=== PATIENT | female | born 1985 | race Caucasian/White ===

== ENCOUNTER 2020-11-07 15:48 | Emergency (ER) | payer MEDICAID, SELFPAY ==
[2020-11-07 15:55] VITALS: BP 133/86; PULSE 110; RESP 20; TEMP 36.2; O2SAT 98
[2020-11-07 16:22] VITALS: RESP 20; BMI 24.4
--- NOTE | 2020-11-07 16:51 | PC.NURSE ---
Pt cooperative w/ changeover, affect guarded, pt denies any recent loss of behavioral control. Pt denies SI, HI or AH/VH.
--- NOTE | 2020-11-07 16:54 | ED.PSYCH ---
HPI - Psych General Chief Complaint: Psychiatric Symptoms Stated Complaint: crisis/ Time Seen by Provider: 11/07/20 16:33 Source: patient and EMS Mode of arrival: ambulatory Limitations: no limitations History of Present Illness HPI Narrative: 35-year-old female with a past medical history of depression here with behavior change. Per report from EMS the patient was at [employer] when she got into a verbal altercation with her field case manager and she became quite aggressive. There was concern for her mental well being and EMS was called and she was brought here . Per report from EMS there have been concerns from several other [employer] the patient has had thoughts of conspiracy and has seen quite paranoid at times. Patient denies these things. She denies hallucinations. Denies suicidal or homicidal ideations. No physical complaints. Denies substance use. No family present to give additional history Related Data Allergies Allergy/AdvReac Type Severity Reaction Status Date / Time No Known Allergies Allergy Verified 11/07/20 16:42 Review of Systems Review of Systems: Yes all other systems are reviewed and are negative Constitutional: Constitutional: Reports no additional constitutional complaints, Denies body ache(s), Denies chills, Denies fever(s), Denies headache(s) and Denies weakness Eyes: Eyes: Reports no additional eye complaints and Denies change in vision ENT: Reports system reviewed and no additional complaints, except as documented, Denies dizziness, Denies headache(s), Denies nasal congestion, Denies nasal discharge and Denies neck pain Cardiovascular: Cardiovascular: Reports no additional cardiovascular complaints, Denies chest pain, Denies leg edema and Denies dyspnea Respiratory: Respiratory: Reports no additional respiratory complaints, Denies cough and Denies dyspnea Gastrointestinal: Gastrointestinal: Reports no additional gastrointestinal complaints, Denies abdominal pain, Denies diarrhea, Denies nausea and Denies vomiting Genitourinary: Genitourinary: Reports no additional female genitourinary complaints and Denies urinary incontinence Musculoskeletal: Musculoskeletal: Reports no additional musculoskeletal complaints, Denies back pain, Denies arthralgias, Denies joint swelling, Denies neck pain, Denies numbness and Denies tingling Integumentary/Breasts: Skin/Breast: Reports system reviewed and no additional complaints, except as docu and Denies rash Neurologic: Reports system reviewed and no additional complaints, except as documented, Denies Abnormal speech present, Denies dizziness, Denies headache(s), Denies numbness, Denies tingling and Denies weakness Psychiatric: Psychiatric: Denies anxiety, Denies depression, Denies visual hallucinations, Denies hallucinations, Denies homicidal ideation and Denies suicidal ideation [facility] Past Medical History Attestation statement: The following information was validated with the patient. Source: old records reviewed and nursing notes reviewed Medical History No known health problems Social History Social History Advance Directives: No Advance Directives Information Provided: Yes Patient : No Physical Exam Vital Signs: Vital Signs: Last Vital Signs Temp 97.2 F 11/07/20 15:55 Pulse 110 H 11/07/20 15:55 Resp 20 11/07/20 18:00 BP 133/86 11/07/20 15:55 Pulse Ox 98 11/07/20 15:55 Body Mass Index 24.4 Const: General: cooperative, healthy appearing, comfortable and no acute distress Orientation/consciousness: patient oriented x3 Limitations: no limitations HENMT: Head: Yes normal to inspection Ears: hearing grossly normal bilaterally General nose exam: Normal external nose present Face and sinus: Yes normal facial exam Mouth: Normal oral and palatal mucosa present Throat: Yes posterior oropharynx normal Eyes: General: appearance normal, both eyes and all related structures Pupils: Equal, round and reactive pupils present Neck: Neck: Yes normal visual inspection Chest: Chest palpation & inspection: normal inspection of the chest Resp: Effort & Inspection: normal respiratory effort Auscultation: clear to auscultation bilaterally Cardio: Rate: regular rate Rhythm: regular rhythm Peripheral pulses: Peripheral pulses 2+ throughout GI: Inspection: Yes normal to inspection Palpation (GI): Soft to palpation and nontender Auscultation: normal bowel sounds Back/Spine/Pelvis: Thoracic/Lumbar Spine: thoracic and lumbar spine normal to inspection Skin: General skin exam: no rashes or lesions noted Neuro: General: patient oriented x3, no focal motor deficits and normal sensation to monofilament Cranial nerves: Yes Equal, round and reactive pupils present Cognition (Neuro): normal cognition Speech: No Abnormal speech present Gait exam (Neuro): Normal gait present Motor exam (neuro): 5/5 motor strength present throughout Extrem: General: Yes normal to inspection Psych: Appearance: grossly normal Mental Status: mental status grossly normal Speech and movement: Normal speech and movement present Affect: normal affect Attitude: cooperative Course Course Course Narrative: 35-year-old female here after reports of having an aggressive outburst while at [employer] and seeming quite paranoid with thoughts of conspiracy per EMS. Patient denies suicidal or homicidal ideations. No hallucinations. No physical complaints. She provides very limited history and responds very briefly to my questions. Family is not available for additional report. Will involve care team for further evaluation, check drug screen 1939-care team saw the patient and spoke to family. They are at the bedside. There are no immediate safety concerns and the patient is denying hallucinations, suicidal or homicidal ideations. Plan for discharge home with Mom. Reviewed worrisome signs and symptoms of when to return to the emergency department. Comfortable discharge home. [facility] - Psych Medical Records Attestation: I reviewed the patient's medical records. Lab Data Attestation: I reviewed the patient's lab results. Labs: Lab Results 11/07/20 11/07/20 11/07/20 Range/Units 16:43 16:43 18:21 Urine Test NEGATIVE (NEGATIVE) Urine Opiates Screen Not Detected (Not Detect) Ur Barbiturates Screen Not Detected (Not Detect) Ur Phencyclidine Scrn Not Detected (Not Detect) Ur Amphetamines Screen Not Detected (Not Detect) U Benzodiazepines Scrn Not Detected (Not Detect) Urine Cocaine Screen Not Detected (Not Detect) U Marijuana (THC) Screen Not Detected (Not Detect) COVID-19 (JARETH) Negative (Negative) COVID-19 Clin Com See Note Discharge Plan Discharge Clinical Impression: Adjustment disorder Qualifiers: Adjustment disorder type: unspecified type Qualified Code(s): F43.20 - Adjustment disorder, unspecified Patient Disposition: Home, Self-Care Instructions: Stress (ED) Referrals: Physician,Unknown [Primary Care Provider] - 2 days Interventions: ED Discharge Assessment Last Done: 11/07/20 19:44 Discharge Date/Time: 11/07/20 19:52
[2020-11-07 17:00] LABS: UPreg QC Valid YES; Urine Pregnancy NEGATIVE (NEGATIVE)
[2020-11-07 17:19] LABS: Amphetamine Screen Urine Not Detected (Not Detect); Barbiturates, Urine Not Detected (Not Detect); Benzodiazepines Screen Urine Not Detected (Not Detect); Cannabinoid Screen Urine Not Detected (Not Detect); Cocaine Screen Urine Not Detected (Not Detect); Opiate Screen Urine Not Detected (Not Detect); Phencyclidine Screen Urine Not Detected (Not Detect)
[2020-11-07 18:00] VITALS: RESP 20
--- NOTE | 2020-11-07 18:07 | PC.NURSE ---
Mother in w/ pt- mother denies that pt lost control in [employer], is unclear why her daughter was sent to the ED. pt in room,eating dinner. Affect guarded, speech halting ? thought blocking.
[2020-11-07 18:49] LABS: COVID-19 Test Negative (Negative); IDNOW Serial# 9DD0AD1C
--- NOTE | 2020-11-07 20:05 | MHC.CARE ---
CARE team consult requested for 35 year old, bilingual, female who arrived by EMS from [employer] for reported loss of behavioral control marked by paranoia, unspecified aggression, and question of altered mental status. Pt was guarded with odd affect and thought blocking. Pt laughed before answering most questions and often asked this insurance underwriter to repeat questions when asked. Pt denied experiencing any thoughts and/or urges to harm self or others, denied experiencing hallucinations, and denied any recent changes in her mood or daily functioning. Pt's mother was present for the consultation and denied that the pt was aggressive, paranoid, or disoriented. Pt's mother denied having any safety concerns with regards to the pt, though indicated that she wants the pt to see her counselor again and resume taking medications, concerned that pt hasn't been sleeping well lately and has been anxious. Pt denied both of these things. Pt reported that she previously worked with a therapist however stopped several month ago, and was on medication but would not say what or what for. Last year pt was admitted to [facility], which pt nor her mother could explain whether the admission was medical or psychiatric, only that pt began taking medications while she was there and working with her therapist shortly after. Pt's mother reported that the pt was anxious and overwhelmed by the covid-19 pandemic, having lost her job and being isolated at home, and feels that is why pt was in the hospital. Pt shared that she had gone to [employer] with her mother today for a sermon, and she spoke with the jar capper 1 to 1 in the [employer] basement, stating that she wanted to thank him for all his love and support. Pt reported that a woman affiliated with the [employer] began to ask the pt questions such as what the date is, where she is, etc. Instead of answering, pt reported that she laughed in responses and was interpreted as pt not being oriented. Pt and her mother denied there being any instances of aggression and were surprised to hear pt's behavior described as such. Pt and her mother were advocating for discharge home. This insurance underwriter contacted [facility] and spoke with crisis bailer operators supervisor Anh who shared information from a crisis evaluation that took place at [facility] on Feb 27, 2020-- pt was evaluated on the medical floor where she had been admitted for question of seizures and other potential medical causes for onset of symptoms of psychosis marked by paranoia and unusual, disorganized behavior, keeping knives by her door and hiding in her room. This resulted in a brief psychiatric admission, with no other documented treatment history reported by pt/mother or through [facility] or via hospital medical record. ED provider was consulted re: pt's current presentation, what she and her mother have reported, and history obtained from the crisis team. Discussed plan of care for pt to discharge home with her mother and to follow up with [facility] crisis for a mobile crisis evaluation, as pt's mother is advocating to take pt home and denied having any concerns for pt's safety or the safety of others. Contact information for [facility] crisis was given to each the pt and her mother, and were encouraged to call and speak with someone more about what had happened at the [employer] today, and to use as a resources if/when future concerns or situations arise.
== END 2020-11-07 19:52 | disposition home or self-care (01) ==
PROVIDERS: Nurse Practitioner Family; Emergency Provider Emergency Medicine
DX: F43.20 Adjustment disorder, unspecified (principal); Z20.822 Contact with and (suspected) exposure to COVID-19; F32.9 Major depressive disorder, single episode, unspecified
CPT/HCPCS: 36415; 80307; 81025; 87635; 99284

== ENCOUNTER 2023-01-09 11:20 | Emergency (ER) | payer OTHER, SELFPAY ==
--- NOTE | ~2023-01-09 | CT_ITS ---
EXAMINATION: CT HEAD WITHOUT CONTRAST CLINICAL INFORMATION: Head trauma. COMPARISON: CT sinuses from 12/24/2019. TECHNIQUE: Contiguous axial imaging was performed from the skull base to vertex without intravenous administration of contrast. This CT examination was performed using dose optimization techniques as appropriate, variously including the following: *Automated exposure control. *Adjustment of mA and/or kV according to patient size (this includes techniques or standardized protocols for targeted exams where dose is matched to indication/reason for exam; i.e. extremities or head). *Use of iterative reconstruction technique. DLP: 621 mGy-cm FINDINGS: There is no evidence of acute intracranial hemorrhage or edematous territorial infarction. Goff-white matter differentiation is preserved. There is no abnormal attenuation within the brain parenchyma. The ventricles are normal in morphology and size. No evidence for obstructive hydrocephalus. No abnormal mass effect or midline shift. No extra-axial fluid collections. Laceration of the right frontal scalp. No associated osseous abnormalities. Mild mucosal thickening of the paranasal sinuses. The mastoid air cells and middle ear cavities are clear. CT/CT head/brain wo IV con IMPRESSION: 1. No evidence of acute intracranial hemorrhage or edematous territorial infarction. 2. Laceration of the right frontal scalp. No associated osseous abnormalities.
[2023-01-09 11:36] VITALS: BP 136/84; BP 141/69; PULSE 112; PULSE 118; RESP 16; O2SAT 99; BMI 22.4
--- NOTE | 2023-01-09 13:04 | ED_ITS ---
HPI - Skin/Abscess/Foreign Bdy General Chief complaint: Skin/Abscess/Foreign Body Stated complaint: forehead lac unk how it hap, from [facility] [address] Time Seen by Provider: 01/09/23 11:49 Source: patient and RN notes reviewed Mode of arrival: ambulatory Limitations: no limitations History of Present Illness HPI narrative: This is a 37-year-old female, with a past medical history of depression, presenting to the emergency department from [facility] on [address] [facility], accompanied by her father for forehead laceration. Patient is a poor historian and is unable to report how long she has had this laceration for or how it happened. Father does not have much knowledge regarding patient, situation, or medical history. Father reports that there is no report on how patient received this laceration on her forehead. Mother reports that she has tried contacting the facility but no staff members have given parents a report on how this occurred. No other complaints or concerns at this time. MD complaint: laceration Tetanus up to date: unsure Location: head Related Data Allergies Allergy/AdvReac Type Severity Reaction Status Date / Time No Known Allergies Allergy Verified 11/09/20 16:49 Review of Systems Review of Systems: Patient is a poor historian, unable to obtain ROS Yes all other systems are reviewed and are negative Constitutional: Constitutional: Reports as per [facility] Past Medical History Medical History (Updated 01/10/23 @ 00:31 by Levar Gamez) No known health problems Social History Social History (System 11/09/20 @ 16:49 by Laure Fernandez) Smoked in Last 30 Days: No Use of substances other than those prescribed or required for medical reasons: No Advance Directives: No Advance Directives Information Provided: Yes Patient : No Physical Exam Vital Signs: Vital Signs: Last Vital Signs Pulse 112 H 01/09/23 14:43 Resp 20 01/09/23 14:43 BP 124/69 01/09/23 14:43 Pulse Ox 98 01/09/23 14:43 O2 Del Method Room Air 01/09/23 14:43 BMI result Body Mass Index 22.4 Const: Other: Patient appears guarded, limited eye contact, whispering words to oneself. Consistently attempting to touch wound, stating that is is ok. Unable to be redirected. General: cooperative, comfortable and no acute distress Limitations: behavioral limitations HEENT: Head: Yes normal to inspection, Yes normocephalic and Yes atraumatic Ears: hearing grossly normal bilaterally General nose exam: Normal external nose present Face and sinus: Yes normal facial exam Mouth: Normal oral and palatal mucosa present, oropharynx normal and moist mucous membranes Throat: Yes posterior oropharynx normal Eyes: General: appearance normal, both eyes and all related structures Eyelids: Yes eyelids normal Conjunctivae: conjunctivae normal Sclerae: sclerae normal Pupils: Equal, round and reactive pupils present EOM: EOMs intact bilaterally Neck: Neck: Yes normal visual inspection, Yes full ROM and Yes no lymphadenopathy Lymphatic: no lymphadenopathy noted Chest: Chest palpation & inspection: normal inspection of the chest Resp: Effort & Inspection: normal respiratory effort and able to speak in complete sentences Auscultation: clear to auscultation bilaterally, no crackles, no rales, no rhonchi and no wheezes Cardio: Rate: regular rate Rhythm: regular rhythm Heart sounds: S1 normal heart sound present and S2 normal heart sound present GI: Inspection: Yes normal to inspection Skin: Other: partial thickness laceration measuring approximately 3 cm to the mid forehead, no active bleeding or drainage. No facial muscle involvement noted. Mild surrounding edema noted General skin exam: no rashes or lesions noted Trauma: no lacerations or abrasions Wounds: no wounds Neuro: General: moves all extremities Cranial nerves: Yes Equal, round and reactive pupils present Extrem: General: Yes normal to inspection Right upper extremity: normal to inspection Left upper extremity: normal to inspection Right lower extremity: normal to inspection Left lower extremity: normal to inspection Course Reevaluation(s) Reevaluation #1: CT head pending, attempted wound closure with sutures however patient unable to tolerate even simple cleaning with saline. She is unable to tolerate given agitation, fearful, given her developmental delay. Extensive discussion with mother given risk versus benefit of conscious sedation for wound closure. A long discussion was performed with mother given risk of infection, scarring when using Dermabond vs suturing. I discussed case with my attending Dr. Jeffries, states that given wound will have good wound approximation, this wound can be closed using dermabond. We discussed this with parents and they are in agreement that dermamond will be the best course of action in repairing this wound today. Will medicate patient with Haldol and Ativan to reduce anxiety during procedure. Time: 15:50 Reevaluation #2: Procedure performed with Dr. Jeffries at the bedside. Good wound approximation achieved. patient tolerated procedure well without any complications or concerns. Tetanus is up-to-date, per external records. Updated in August 2022. Time: 17:18 Reevaluation #3: CT head negative. discussed with parents, patient stable for discharge. Given parents good wound care instructions. Advised to follow up with [facility] regarding laceration as it is still unclear how this happened. Parents understand and agree with plan. Given return precautions if any new or worsening symptoms occur. Time: 17:40 Medications Administered Discontinued Medications Generic Name Dose Route Start Last Admin Trade Name Freq PRN Reason Stop Dose Admin Diphtheria/Tetanus/Acell Pertussis 0.5 ml 01/09/23 17:15 01/09/23 17:22 Diphth,Pertus(Acell),Tet Adult 0.5 Ml Syringe IM 01/09/23 17:16 Not Given .ONCE ONE Haloperidol 5 mg 01/09/23 15:49 01/09/23 16:11 Haloperidol 5 Mg Tablet PO 01/09/23 15:50 5 mg ONCE ONE Administration Lidocaine HCl 5 ml 01/09/23 13:14 01/09/23 13:39 Lidocaine Hcl 1 % Mpf 5 Ml Vial INFILTRATI 01/09/23 13:15 5 ml ONCE ONE Administration Lorazepam 1 mg 01/09/23 15:49 01/09/23 16:11 Lorazepam 1 Mg Tablet PO 01/09/23 15:50 1 mg ONCE ONE Administration Medical Decision Making Medical Decision Making MDM Narrative: 37-year-old female presenting to the emergency department for evaluation of laceration to her forehead. Patient coming from [facility] on [address], Patient is a poor historian. Laceration requiring suture repair. Unknown tetanus. Given poor historian and unclear what had happened, CT head obtained to r/o any ICH. VSS. Plan: Wound repair, CT head Differential Diagnosis Differential Diagnoses: The differential diagnosis associated with the presentation includes Laceration, contusion, abrasion, cellulitis Admission/Observation Consideration of admission/observation: Escalation of care including admission/observation considered Patient would have been admitted to the hospital had her work up had any findings where hospital admission was appropriate and her clinical presentation warranted hospital admission. Radiology Impression Discussion of test interpretation with radiology: I have reviewed the radiologist's reading. Radiologist Impression: [address] [address] [address] Scan Report Signed Patient: Onofre Wayne MR#: [id number] : 1985 Acct:[id number] Age/Sex: 37 / F ADM Date: 01/09/23 Loc: HO.ED Attending Dr: Ordering Physician: Mary Puga Date of Service: 01/09/23 Procedure(s): CT head/brain wo IV con Accession Number(s): [id number] cc: Mary Puga~ EXAMINATION: CT HEAD WITHOUT CONTRAST CLINICAL INFORMATION: Head trauma.? COMPARISON: CT sinuses from 12/24/2019. TECHNIQUE: Contiguous axial imaging was performed from the skull base to vertex without intravenous administration of contrast. This CT examination was performed using dose optimization techniques as appropriate, variously including the following: *Automated exposure control. *Adjustment of mA and/or kV according to patient size (this includes techniques or standardized protocols for targeted exams where dose is matched to indication/reason for exam; i.e. extremities or head). *Use of iterative reconstruction technique. DLP: 621 mGy-cm FINDINGS: There is no evidence of acute intracranial hemorrhage or edematous territorial infarction. Goff-white matter differentiation is preserved. There is no abnormal attenuation within the brain parenchyma. The ventricles are normal in morphology and size. No evidence for obstructive hydrocephalus. No abnormal mass effect or midline shift. No extra-axial fluid collections. Laceration of the right frontal scalp. No associated osseous abnormalities. Mild mucosal thickening of the paranasal sinuses. The mastoid air cells and middle ear cavities are clear. ? CT/CT head/brain wo IV con IMPRESSION: 1.? No evidence of acute intracranial hemorrhage or edematous territorial infarction. 2.? Laceration of the right frontal scalp. No associated osseous abnormalities. ? Dictated By: Renard Jarquin DO Procedures Procedure Narrative Procedure Narrative: Local LMX cream applied for topical anethesia. Wound extensively cleansed using saline. Wound cleansed using Dermabond. Wound well approximated. Patient tolerated procedure well without any complications or concerns. Laceration Laceration 1: Site: face Size (cm): 3 Description: linear Depth: simple, single layer Local Anesthetic: other anesthetic (LMX cream) Pre-repair: wound explored, irrigated extensively and deep structures intact Discharge Plan Discharge Clinical Impression: Laceration of forehead Patient Disposition: Home, Self-Care Instructions: Skin Adhesive Care (ED) Additional Instructions: Onofre's head CT was normal. We closed the wound with a skin adhesive. We updated her tdap vaccine today. Please keep close eye on wound, watch for any signs of infection including no to fevers chills increased redness or drainage. Do not pick at wound, allowed Dermabond to follow off on its own. Interventions: ED Discharge Assessment Last Done: 01/09/23 19:47 Discharge Date/Time: 01/09/23 19:48
[2023-01-09 14:43] VITALS: BP 124/69; PULSE 112; RESP 20; O2SAT 98
--- NOTE | 2023-01-09 19:20 | PC.NURSE ---
report called to HUGH oliveros @[facility]
== END 2023-01-09 19:48 | disposition home or self-care (01) ==
PROVIDERS: Emergency Provider Emergency Medicine
DX: S01.81XA Laceration without foreign body of other part of head, initial encounter (principal); R51.9 Headache, unspecified; W26.9XXA Contact with unspecified sharp object(s), initial encounter; Y93.9 Activity, unspecified; Y92.9 Unspecified place or not applicable; Y99.9 Unspecified external cause status
CPT/HCPCS: 12013; 70450; 99284

== ENCOUNTER 2024-07-04 13:54 | Inpatient (IN) | payer OTHER, SELFPAY ==
[2024-07-04 14:26] VITALS: BP 148/84; PULSE 119; RESP 18; TEMP 36.8; O2SAT 96; BMI 26.8
--- NOTE | 2024-07-04 18:09 | PC.ADMIT ---
Onofre (who goes by Allison or Danielle) is a 39 year old woman who was admitted to at 1415 from [facility] on a CV with three day notice for SI and paranoia. Per crisis report she was repeatedly calling 911 and then hanging up. When EMS responded she made suicidal statements and was brought to the hospital. She denies SI/HI/AVH. When brought to her room she became nervous seeing the place where a whiteboard had formerly been on the wall. She stated 'that makes me feel paranoid.' She also states that she feels dizzy due to a medication (ativan) she had received at [facility]. She states that while Ativan helps her feel calm, it is too strong for her. She signed a CV and 3-day notice but immediately regretted signing anything and asked to have the original returned to her. She does not drink alcohol or use any other substances or tobacco. Through the admission process she is cooperative but circumstantial and paranoid, frequently asking to go back and change her responses. Her thought process is disorganized. She states that while she lives with her parents and can return there (and she had a peaceful visit with both parents on the unit already) she would like to go to a longterm because she wants her own place. Her skin check was remarkable. Onofre is placed on 15 minute checks for safety.?
--- NOTE | 2024-07-04 21:30 | HO.PM.IMCN ---
History of Present Illness Data of Consult Service Date: 07/04/24 Requesting physician: Renard Xiao Primary Care Provider: Unknown Physician HPI Reason for consult: Medical consult Patient is a 39-year-old female with a past medical history significant for GERD, admitted to adult Psychiatry for SI and paranoia, consulted for general medical consult. She has no current concerns including chest pain, shortness of breath, nausea, vomiting, abdominal pain, headache, numbness or tingling. Review of Systems Constitutional: Constitutional: Denies body ache(s), Denies chills, Denies fatigue, Denies fever(s), Denies headache(s) and Denies weakness Eyes: Eyes: Denies change in vision ENT: Denies headache(s), Denies nasal congestion, Denies nasal discharge and Denies sore throat Cardiovascular: Cardiovascular: Denies chest pain, Denies rapid heart rate, Denies leg edema and Denies dyspnea Respiratory: Respiratory: Denies chest congestion, Denies cough, Denies dyspnea and Denies wheezing Gastrointestinal: Gastrointestinal: Denies constipation, Denies diarrhea, Denies nausea and Denies vomiting Genitourinary: Genitourinary: Denies dysuria and Denies urinary urgency Musculoskeletal: Musculoskeletal: Denies myalgias, Denies numbness and Denies tingling Integumentary/Breasts: Skin/Breast: Denies rash Neurologic: Denies confusion, Denies headache(s), Denies numbness, Denies tingling and Denies weakness Psychiatric: Psychiatric: Denies confusion Endocrine: Endocrine: Denies fatigue Hematologic/Lymphatic: Hematologic/Lymphatic: Denies easy bleeding and Denies easy bruising Allergic/Immunologic: Allergic/Immunologic: Denies wheezing [facility] Medical History (Updated 07/04/24 @ 21:33 by Ana Rubio PA-C) No known health problems Functional capacity: independent ambulation Social History (System 11/09/20 @ 16:49 by Laure Fernandez) Household Members: Family Housing: House Do you presently have visiting nurse or other home services: No Patient Tobacco Use Status: Never used Tobacco Smoked in Last 30 Days: No Patient Interested in Nicotine Replacement: No Use of substances other than those prescribed or required for medical reasons: No Currently Displaying Signs/Symptoms of Drug Intoxication Withdrawal: No Any prior treatment program specific to substance use: No Have you been hit, kicked, punched, or otherwise hurt by someone within the past year? If so, by whom?: No Do you feel safe in your current relationship?: No Current Relationship Is there a partner from a previous relationship who is making you feel unsafe now?: No Are you made to feel afraid or neglected: No Advance Directives: No Do you have a plan to hurt others: No Plan Recently lost weight without trying: No How much weight loss: Not applicable Eating poorly because of decreased appetite: No Nutrition screen score: 0 Nutrition Risks: No Nutritional Risk Patient : No : No Poor oral hygiene: No Narrative: No smoking, alcohol or drug use Meds Allergies Allergy/AdvReac Type Severity Reaction Status Date / Time No Known Allergies Allergy Verified 11/09/20 16:49 Active Medications: Current Medications Acetaminophen (Acetaminophen 325 Mg Tablet) 650 mg PO Q6H PRN PRN Reason: Headache/Pain Mild Scale (1-3) Al Hydroxide/Mg Hydroxide (Magnesium Hydrox/Alum Hydrox 30 Ml Oral.Susp) 30 ml PO Q6H PRN PRN Reason: Heartburn/Nausea Hydroxyzine HCl (Hydroxyzine Hcl 25 Mg Tablet) 25 mg PO Q6H PRN PRN Reason: Anxiety Magnesium Hydroxide (Milk Of Magnesia 30 Ml Oral.Susp) 30 ml PO DAILY PRN PRN Reason: Constipation Nicotine (Nicotine 21 Mg Patch.Td24) 21 mg TRANSDERMA DAILY PRN PRN Reason: smoking cessation Nicotine Polacrilex (Nicotine Polacrilex 2 Mg Gum) 4 mg BUCCAL Q2H PRN PRN Reason: nicotine cravings Olanzapine (Olanzapine 2.5 Mg Tablet) 2.5 mg PO TID PRN PRN Reason: agitation Trazodone HCl (Trazodone Hcl 50 Mg Tablet) 50 mg PO BEDTIME MRX1 PRN PRN Reason: Insomnia Home Medications ?Medication ?Instructions ?Recorded ?Confirmed ?Last Taken ?Type No Known Home Meds 07/04/24 07/04/24 Unknown History Physical Exam Vital Signs and Narrative: Vital Signs: Last Vital Signs Temp 98.2 F 07/04/24 14:26 Pulse 119 H 07/04/24 14:26 Resp 18 07/04/24 14:26 BP 148/84 H 07/04/24 14:26 Pulse Ox 96 07/04/24 14:26 O2 Del Method Room Air 07/04/24 14:26 BMI result Body Mass Index 26.8 General: AOx3, no acute distress Resp: CTA bilaterally CVS: S1, S2, RRR GI: +BS, NT, no distention Skin: Warm, dry Neuro: Cranial nerves II-XII grossly intact bilaterally. Motor grossly intact bilaterally Extremities: No LE edema Psych: Appropriate affect Const: General: No confusion Orientation/consciousness: No confusion Neuro: General: No confusion Assessment and Plan (1) Medical clearance for psychiatric admission: Status: Acute Plan Patient is a 39-year-old female with a past medical history significant for GERD, admitted to adult Psychiatry for SI and paranoia, consulted for general medical consult. No acute general medical concerns. Patient is medically cleared for the psychiatric floor. Mood disorder, SI - plan per psych GERD - consider famotidine 20mg as needed Thank you for allowing me to participate in the pt's care. Signing off for now. Please contact the medical team if any questions or concerns.
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
[2024-07-05 20:00] VITALS: RESP 15
[2024-07-05] MEDS: LORazepam 0.5 MG TABLET PO (21:21)
--- NOTE | 2024-07-06 08:53 | HO.PSYCHPN ---
Subjective Subjective Date of Service: 07/06/24 Reason For Visit: Unspecified Depressive Disorder Subjective Notes: 3 Day Healthcare Proxy: No Guardianship: No Medical Problems Affecting Mental Status: No Interim History: 39 yo WF very odd presentation- doesn't quite get why she is here- whispering to provider and not wanting to talk in front of roommate- walking down [address]- window at end- felt someone might be watching but then nearly tucked self into someone else's partially opened door- Very hard to follow or understand- had to be reminded after meeting with provider to see mother who was there for a visit- Medication Compliance: No (says she took something last pm to sleep ) Side effects from medications: No Attending Groups: No (isolating to room,) Review of Systems Acute medical concerns: No Medical Review of Systems: unchanged Mental Status Exam Mental Status Exam Patient Appearance: Appropriate Patient Orientation: Person, Place and Situation Level of Consciousness: Awake Patient Behavior: Passive, Distractible, Isolative and Good Eye Contact Mood Description: Apprehensive Affect Description: Blunted Ability to Follow Directions: Fair Speech Pattern: Whisper, Soft-Spoken and Long Pauses Thought Process: Distracted, Evasive (vague) and Confusion Thought Content: positive for Disorganized Abnormal Motor Activity Signs and Symptoms: Restlessness Judgement: Fair (-poor) Diagnostics Vital Signs (24Hr): Vital Signs - 24 hr 07/05/24 20:00 Respiratory Rate 15 BMI result Body Mass Index 26.8 Medications Medications Current Medications Acetaminophen (Acetaminophen 325 Mg Tablet) 650 mg PO Q6H PRN PRN Reason: Headache/Pain Mild Scale (1-3) Al Hydroxide/Mg Hydroxide (Magnesium Hydrox/Alum Hydrox 30 Ml Oral.Susp) 30 ml PO Q6H PRN PRN Reason: Heartburn/Nausea Hydroxyzine HCl (Hydroxyzine Hcl 25 Mg Tablet) 25 mg PO Q6H PRN PRN Reason: Anxiety Lorazepam (Lorazepam 0.5 Mg Tablet) 0.5 mg PO BEDTIME JUDY Last Admin: 07/05/24 21:21 Dose: 0.5 mg Magnesium Hydroxide (Milk Of Magnesia 30 Ml Oral.Susp) 30 ml PO DAILY PRN PRN Reason: Constipation Nicotine (Nicotine 21 Mg Patch.Td24) 21 mg TRANSDERMA DAILY PRN PRN Reason: smoking cessation Nicotine Polacrilex (Nicotine Polacrilex 2 Mg Gum) 4 mg BUCCAL Q2H PRN PRN Reason: nicotine cravings Olanzapine (Olanzapine 2.5 Mg Tablet) 2.5 mg PO TID PRN PRN Reason: agitation Olanzapine (Olanzapine 5 Mg Tablet) 5 mg PO BEDTIME JUDY Last Admin: 07/05/24 21:25 Dose: Not Given Trazodone HCl (Trazodone Hcl 50 Mg Tablet) 50 mg PO BEDTIME MRX1 PRN PRN Reason: Insomnia Allergies Allergies Allergy/AdvReac Type Severity Reaction Status Date / Time No Known Allergies Allergy Verified 11/09/20 16:49 Assessment & Plan Assessment & Plan (1) MDD (major depressive disorder), recurrent, severe, with psychosis: Status: Acute Code(s): F33.3 - Major depressive disorder, recurrent, severe with psychotic symptoms (2) PTSD (post-traumatic stress disorder): Status: Acute Code(s): F43.10 - Post-traumatic stress disorder, unspecified (3) TBI (traumatic brain injury): Status: Acute Code(s): S06.9XAA - Unspecified intracranial injury with loss of consciousness status unknown, initial encounter Plan Patient is a 39-year-old female with history of MDD with psychosis, and TBI, who was brought to ED via EMS after patient reportedly called 911 multiple times and made suicidal statements. Plan: 3 day 15 minute safety checks Obtain collateral Start: Zyprexa 5mg PO bedtime Ativan 0.5mg PO bedtime Encourage groups Referral to outpatient psychiatric providers Discharge planning Informed Consent: does not understand Reason for continued inpatient stay Substantial Risk for: inability to function and rapid decompensation Time Spent With Patient Time: Total time managing care of this patient today ____ minutes.
[2024-07-06 20:00] VITALS: RESP 15
[2024-07-06] MEDS: LORazepam 0.5 MG TABLET PO (20:57)
--- NOTE | 2024-07-07 10:15 | HO.PSYCHPN ---
Subjective Subjective Date of Service: 07/07/24 Reason For Visit: Unspecified Depressive Disorder Subjective Notes: [place] Warning and Conditional Voluntary Healthcare Proxy: No Guardianship: No Medical Problems Affecting Mental Status: No Interim History: 39 yo WF somewhat discombobulated by switch from m5 to m3- but actually immediately engaged with another patient-Pt acted confused on m5 about her and I having met yesterday and had discussion - Also says she has some foot issue- like boil or/corn- but can't really describe it- Have spoke with patient about her confused thoughts, - she can't really engage talks about [facility] and when asked for pcp - can't say-or who she saw there for what Medication Compliance: No (suggesting olanzapine - and so far patient choosing ativan for sleep only) Side effects from medications: No Attending Groups: Intermittent Review of Systems Acute medical concerns: No Medical Review of Systems: unchanged Mental Status Exam Mental Status Exam Patient Appearance: Well Grooomed Patient Orientation: Person, Place and Situation Level of Consciousness: Awake Patient Behavior: Guarded, Passive and Distractible Mood Description: Apprehensive Affect Description: Blunted Patient Cognition Impaired: No Ability to Follow Directions: Fair Speech Pattern: Soft-Spoken and Mumbled Delusions: Paranoid Ideation (?) Thought Process: Distracted and Slowed Thinking Thought Content: positive for Poverty of Content and positive for Disorganized Depressive Symptoms: Difficulty Concentrating Judgement: Poor Diagnostics Vital Signs (24Hr): Vital Signs - 24 hr 07/06/24 20:00 Respiratory Rate 15 BMI result Body Mass Index 26.8 Medications Medications Current Medications Acetaminophen (Acetaminophen 325 Mg Tablet) 650 mg PO Q6H PRN PRN Reason: Headache/Pain Mild Scale (1-3) Al Hydroxide/Mg Hydroxide (Magnesium Hydrox/Alum Hydrox 30 Ml Oral.Susp) 30 ml PO Q6H PRN PRN Reason: Heartburn/Nausea Hydroxyzine HCl (Hydroxyzine Hcl 25 Mg Tablet) 25 mg PO Q6H PRN PRN Reason: Anxiety Lorazepam (Lorazepam 0.5 Mg Tablet) 0.5 mg PO BEDTIME JUDY Last Admin: 07/06/24 20:57 Dose: 0.5 mg Magnesium Hydroxide (Milk Of Magnesia 30 Ml Oral.Susp) 30 ml PO DAILY PRN PRN Reason: Constipation Nicotine (Nicotine 21 Mg Patch.Td24) 21 mg TRANSDERMA DAILY PRN PRN Reason: smoking cessation Nicotine Polacrilex (Nicotine Polacrilex 2 Mg Gum) 4 mg BUCCAL Q2H PRN PRN Reason: nicotine cravings Olanzapine (Olanzapine 2.5 Mg Tablet) 2.5 mg PO TID PRN PRN Reason: agitation Olanzapine (Olanzapine 5 Mg Tablet) 5 mg PO BEDTIME JUDY Last Admin: 07/06/24 22:11 Dose: Not Given Trazodone HCl (Trazodone Hcl 50 Mg Tablet) 50 mg PO BEDTIME MRX1 PRN PRN Reason: Insomnia Allergies Allergies Allergy/AdvReac Type Severity Reaction Status Date / Time No Known Allergies Allergy Verified 11/09/20 16:49 Assessment & Plan Assessment & Plan (1) PTSD (post-traumatic stress disorder): Status: Acute Code(s): F43.10 - Post-traumatic stress disorder, unspecified (2) TBI (traumatic brain injury): Status: Acute Code(s): S06.9XAA - Unspecified intracranial injury with loss of consciousness status unknown, initial encounter Plan Patient is a 39-year-old female with history of MDD with psychosis, and TBI, who was brought to ED via EMS after patient reportedly called 911 multiple times and made suicidal statements. Plan: 3 day 15 minute safety checks Obtain collateral Start: Zyprexa 5mg PO bedtime Ativan 0.5mg PO bedtime Encourage groups Referral to outpatient psychiatric providers Discharge planning Patient educated on: medication risk/benefits Informed Consent: further education needed Reason for continued inpatient stay Substantial Risk for: harm to self (from admission denies now), inability to function and rapid decompensation Time Spent With Patient Time: Total time managing care of this patient today ____ minutes.
--- NOTE | 2024-07-07 14:14 | PC.NURSE ---
At 1200 nurse to nurse report was given to Maame Meier RN and Danielle was transferred to at 1240 with RN and security.
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
--- NOTE | 2024-07-08 14:25 | HO.PSYEVENT ---
Event Note Date of Service: 07/08/24 Psych Restraint Event Note: pt would not return from fresh air break, had to be physically escorted back onto the unit. Time Spent With Patient Time: Total time managing care of this patient today ____ minutes.
--- NOTE | 2024-07-08 14:48 | HO.BHRESTREX ---
Behavioral Restraint Exam Behavioral Health Restraint Exam Type of Restraint: Physical Hold Reason for Restraint: Occurrence of self-harming or suicidal behavior as evidenced by: (attempted elopement) Medical Concerns for Restraint: No medical concerns, pt w/o acute inj / no noted resp/VS abnormalities Behavioral Assessment / Plan: No further behavioral concerns, continue current plan.
--- NOTE | 2024-07-08 15:39 | HO.PSYCHPN ---
Subjective Subjective Date of Service: 07/08/24 Reason For Visit: Unspecified Depressive Disorder Interim History: barricading doorway. disorganized, unable to explain her behaviors. aware this is a hospital. no requests or complaints. per staff, 3-day up tues. disorganized. +RIS. slept about 3 hours. refusing meds. Mental Status Exam Mental Status Exam Narrative: disheveled, variably cooperative. no PMA/PMR. speech nml rate, incr amount, incr latency, nml loudness. thoughts disorganized, vague. affect blunted. mood not assessed. no SI. no HI/AVH expressed. Diagnostics Vital Signs (24Hr): BMI result Body Mass Index 26.8 Medications Medications Current Medications Acetaminophen (Acetaminophen 325 Mg Tablet) 650 mg PO Q6H PRN PRN Reason: Headache/Pain Mild Scale (1-3) Al Hydroxide/Mg Hydroxide (Magnesium Hydrox/Alum Hydrox 30 Ml Oral.Susp) 30 ml PO Q6H PRN PRN Reason: Heartburn/Nausea Hydroxyzine HCl (Hydroxyzine Hcl 25 Mg Tablet) 25 mg PO Q6H PRN PRN Reason: Anxiety Lorazepam (Lorazepam 0.5 Mg Tablet) 0.5 mg PO BEDTIME [facility] Last Admin: 07/08/24 02:06 Dose: Not Given Magnesium Hydroxide (Milk Of Magnesia 30 Ml Oral.Susp) 30 ml PO DAILY PRN PRN Reason: Constipation Nicotine (Nicotine 21 Mg Patch.Td24) 21 mg TRANSDERMA DAILY PRN PRN Reason: smoking cessation Nicotine Polacrilex (Nicotine Polacrilex 2 Mg Gum) 4 mg BUCCAL Q2H PRN PRN Reason: nicotine cravings Olanzapine (Olanzapine 2.5 Mg Tablet) 2.5 mg PO TID PRN PRN Reason: agitation Olanzapine (Olanzapine 5 Mg Tablet) 5 mg PO BEDTIME [facility] Last Admin: 07/08/24 02:06 Dose: Not Given Trazodone HCl (Trazodone Hcl 50 Mg Tablet) 50 mg PO BEDTIME MRX1 PRN PRN Reason: Insomnia Allergies Allergies Allergy/AdvReac Type Severity Reaction Status Date / Time No Known Allergies Allergy Verified 11/09/20 16:49 Assessment & Plan Assessment & Plan (1) PTSD (post-traumatic stress disorder): Status: Acute Code(s): F43.10 - Post-traumatic stress disorder, unspecified (2) TBI (traumatic brain injury): Status: Acute Code(s): S06.9XAA - Unspecified intracranial injury with loss of consciousness status unknown, initial encounter Plan Patient is a 39-year-old female with history of MDD with psychosis, and TBI, who was brought to ED via EMS after patient reportedly called 911 multiple times and made suicidal statements. Plan: 3 day 15 minute safety checks Obtain collateral Start: Zyprexa 5mg PO bedtime Ativan 0.5mg PO bedtime Encourage groups Referral to outpatient psychiatric providers Discharge planning 07/08: disorganized, clearly unable to meet basic needs for herself. continue to offer medications. file for commitment tomorrow. attempted to elope from fresh air break, required physical hold to return to unit. Reason for continued inpatient stay Substantial Risk for: harm to self and inability to function Time Spent With Patient Time: Total time managing care of this patient today __35__ minutes.
--- NOTE | 2024-07-08 17:14 | PC.NURSE ---
Patient was exiting M3 en route to M3 fresh air porch. She got stuck - would not walk to fresh air porch or back to the unit. Staff attempted to talk her into returning to the unit and she resisted. Patient pushed staff and attempted to elope. Pt was physically escorted back to the unit.
--- NOTE | 2024-07-08 22:49 | PC.NURSE ---
Patient is disorganized this evening. This life underwriter attempted assessment and medication administration multiple times. Each time, the patient was not able to communicate clearly. She could not state her own name, or where she was. She repeatedly summoned this life underwriter, stating Ma'am? Ma'am? but was not able to be clearer. At one point she said she needed to use the phone, but did not know the number she wanted to call. She repeatedly said Uhm, um, and seemed anxious, but could not communicate what was bothering her. She would also say I need... and trail off.
--- NOTE | 2024-07-08 23:05 | PC.NURSE ---
Patient received a phone call from her mother. The community engagement leader and this technical proposal writer attempted to tell the patient her mother was on the phone, but patient seemed unable to understand. Patient stated shortly after this that she would call her back. The patient, however, is unable to say who she wants to call or articulate the phone number.
--- NOTE | 2024-07-09 03:58 | PC.NURSE ---
Patient is not sitting down, and has not been since this television writer came on the unit at approximately 1930. She is leaning against a wall and has been for hours. She has had 200 cc of water from this nurse this shift, and has refused more water. She refuses to lay down in her bed, or go into her room. She has mumbled nonstop but is not speaking in full sentences to this television writer.
--- NOTE | 2024-07-09 06:38 | PC.NURSE ---
Patient told staff she needed to use the bathroom. This hand sign writer and a fellow staff member attempted to bring this patient to her room and her toilet; she refused to walk down the acevedo or go into her room. Patient educated regarding self care. Patient refused to enter her room and thus did not enter the bathroom.
--- NOTE | 2024-07-09 13:19 | P.PNPSI_ITS ---
Subjective Subjective Date of Service: 07/09/24 Reason For Visit: Unspecified Depressive Disorder Subjective Notes: [place] Warning Healthcare Proxy: Yes Interim History: standing for long period in the acevedo, looking down the acevedo at active area. unable to express any complete thoughts to MD, unable to answer any questions. vague, trailing off. informed of plan to file for commitment. met with mother, who is HCP, and discussed starting medication. mother agreed to zyprexa 2.5 mg daily, to be given at bedtime. per staff, disorganized, unable to verbalize needs. not eating or drinking. attempted elopement from [facility]. standing for m ore than 12 hours this morning. Mental Status Exam Mental Status Exam Narrative: disheveled, variably cooperative. no PMA/PMR. speech nml rate, decr amount, incr latency, decr loudness. thoughts disorganized, vague. affect blunted. mood not assessed. no SI/HI/AVH expressed. Diagnostics Vital Signs (24Hr): BMI result Body Mass Index 26.8 Medications Medications Current Medications Acetaminophen (Acetaminophen 325 Mg Tablet) 650 mg PO Q6H PRN PRN Reason: Headache/Pain Mild Scale (1-3) Al Hydroxide/Mg Hydroxide (Magnesium Hydrox/Alum Hydrox 30 Ml Oral.Susp) 30 ml PO Q6H PRN PRN Reason: Heartburn/Nausea Hydroxyzine HCl (Hydroxyzine Hcl 25 Mg Tablet) 25 mg PO Q6H PRN PRN Reason: Anxiety Magnesium Hydroxide (Milk Of Magnesia 30 Ml Oral.Susp) 30 ml PO DAILY PRN PRN Reason: Constipation Nicotine (Nicotine 21 Mg Patch.Td24) 21 mg TRANSDERMA DAILY PRN PRN Reason: smoking cessation Nicotine Polacrilex (Nicotine Polacrilex 2 Mg Gum) 4 mg BUCCAL Q2H PRN PRN Reason: nicotine cravings Olanzapine (Olanzapine 2.5 Mg Tablet) 2.5 mg PO TID PRN PRN Reason: agitation Olanzapine (Olanzapine 5 Mg Tablet) 5 mg PO BEDTIME JUDY Last Admin: 07/08/24 20:33 Dose: Not Given Trazodone HCl (Trazodone Hcl 50 Mg Tablet) 50 mg PO BEDTIME MRX1 PRN PRN Reason: Insomnia Allergies Allergies Allergy/AdvReac Type Severity Reaction Status Date / Time No Known Allergies Allergy Verified 11/09/20 16:49 Assessment & Plan Assessment & Plan (1) PTSD (post-traumatic stress disorder): Status: Acute Code(s): F43.10 - Post-traumatic stress disorder, unspecified (2) TBI (traumatic brain injury): Status: Acute Code(s): S06.9XAA - Unspecified intracranial injury with loss of consciousness status unknown, initial encounter (3) Schizo affective schizophrenia: Status: Acute Code(s): F25.9 - Schizoaffective disorder, unspecified Plan Patient is a 39-year-old female with history of MDD with psychosis, and TBI, who was brought to ED via EMS after patient reportedly called 911 multiple times and made suicidal statements. Plan: 3 day 15 minute safety checks Obtain collateral Start: Zyprexa 5mg PO bedtime Ativan 0.5mg PO bedtime Encourage groups Referral to outpatient psychiatric providers Discharge planning 07/08: disorganized, clearly unable to meet basic needs for herself. continue to offer medications. file for commitment tomorrow. attempted to elope from fresh air break, required physical hold to return to unit. 07/09: filed for commitment. invoking HCP. mother (HCP) approved zyprexa 2.5 mg QHS. Patient educated on: diagnosis and medication risk/benefits Guardian/Caregiver educated on: diagnosis and medication risk/benefits Reason for continued inpatient stay Substantial Risk for: inability to function Time Spent With Patient Time: Total time managing care of this patient today __45__ minutes.
--- NOTE | 2024-07-09 14:04 | HO.HCP ---
Health Care Proxy Invocation Health Care Proxy Declaration: I, sheridan romero MD , on the date cited below, have determined that, kenton wells , lacks the capacity to make or communicate, informed health care decision. This determination is made in accordance with accepted standards of medical judgment and pursuant to [place], the [facility] Care Proxy Law. The cause, nature, extent and probable duration of the patient's inapacity are described below: Cause: psychosis Nature: disorganized thoughts Extent: severe and pervasive Probable Duration of Patient's Incapacity: unpredictable without treatment
[2024-07-09 20:00] VITALS: RESP 18
--- NOTE | 2024-07-10 13:01 | HO.PSYCHPN ---
Subjective Subjective Date of Service: 07/10/24 Reason For Visit: Unspecified Depressive Disorder Interim History: refusing medications. i'm OK. lying prone on her bed, unable to answer questions, generally. cannot formulate and express a thought. some grimacing and grunting, unable to say why. per staff, anxious and withdrawn. guarded, paranoid. standing in acevedo for hours. refusing zyprexa. no sleep overnight. poor PO intake. Mental Status Exam Mental Status Exam Narrative: disheveled, cooperative to her ability. no PMA/PMR. speech nml rate, decr amount, incr latency, decr loudness. thoughts disorganized, vague. affect blunted. mood not assessed. no SI/HI/AVH expressed. Diagnostics Vital Signs (24Hr): Vital Signs - 24 hr 07/09/24 20:00 Respiratory Rate 18 BMI result Body Mass Index 26.8 Medications Medications Current Medications Acetaminophen (Acetaminophen 325 Mg Tablet) 650 mg PO Q6H PRN PRN Reason: Headache/Pain Mild Scale (1-3) Al Hydroxide/Mg Hydroxide (Magnesium Hydrox/Alum Hydrox 30 Ml Oral.Susp) 30 ml PO Q6H PRN PRN Reason: Heartburn/Nausea Hydroxyzine HCl (Hydroxyzine Hcl 25 Mg Tablet) 25 mg PO Q6H PRN PRN Reason: Anxiety Magnesium Hydroxide (Milk Of Magnesia 30 Ml Oral.Susp) 30 ml PO DAILY PRN PRN Reason: Constipation Nicotine (Nicotine 21 Mg Patch.Td24) 21 mg TRANSDERMA DAILY PRN PRN Reason: smoking cessation Nicotine Polacrilex (Nicotine Polacrilex 2 Mg Gum) 4 mg BUCCAL Q2H PRN PRN Reason: nicotine cravings Olanzapine (Olanzapine 2.5 Mg Tablet) 2.5 mg PO TID PRN PRN Reason: agitation Olanzapine (Olanzapine 2.5 Mg Tablet) 2.5 mg PO BEDTIME JUDY Last Admin: 07/09/24 22:16 Dose: Not Given Trazodone HCl (Trazodone Hcl 50 Mg Tablet) 50 mg PO BEDTIME MRX1 PRN PRN Reason: Insomnia Allergies Allergies Allergy/AdvReac Type Severity Reaction Status Date / Time No Known Allergies Allergy Verified 11/09/20 16:49 Assessment & Plan Assessment & Plan (1) PTSD (post-traumatic stress disorder): Status: Acute Code(s): F43.10 - Post-traumatic stress disorder, unspecified (2) TBI (traumatic brain injury): Status: Acute Code(s): S06.9XAA - Unspecified intracranial injury with loss of consciousness status unknown, initial encounter (3) Schizo affective schizophrenia: Status: Acute Code(s): F25.9 - Schizoaffective disorder, unspecified Plan Patient is a 39-year-old female with history of MDD with psychosis, and TBI, who was brought to ED via EMS after patient reportedly called 911 multiple times and made suicidal statements. Plan: 3 day 15 minute safety checks Obtain collateral Start: Zyprexa 5mg PO bedtime Ativan 0.5mg PO bedtime Encourage groups Referral to outpatient psychiatric providers Discharge planning 07/08: disorganized, clearly unable to meet basic needs for herself. continue to offer medications. file for commitment tomorrow. attempted to elope from fresh air break, required physical hold to return to unit. 07/09: filed for commitment. invoking HCP. mother (HCP) approved zyprexa 2.5 mg QHS. 07/10: refused meds last night. bizarre and disorganized behaviors continue. continue current mgmt. Reason for continued inpatient stay Substantial Risk for: inability to function Time Spent With Patient Time: Total time managing care of this patient today __25__ minutes.
[2024-07-10 20:25] VITALS: RESP 18
--- NOTE | 2024-07-11 14:05 | HO.PSYCHPN ---
Subjective Subjective Date of Service: 07/11/24 Reason For Visit: Unspecified Depressive Disorder Interim History: able to say she wants to go home. otherwise unable to complete a sentence. standing in hallway, aimlessly, apparently. per staff, +RIS, disorganized, confused. mumbled speech. unable to engage. refusing medications. sleeping during the day, not at NOC. ate bfast yesterday. Mental Status Exam Mental Status Exam Narrative: disheveled, cooperative to her ability. no PMA/PMR. speech nml rate, decr amount, incr latency, decr loudness. thoughts disorganized, vague. affect blunted. mood not assessed. no SI/HI/AVH expressed. Diagnostics Vital Signs (24Hr): Vital Signs - 24 hr 07/10/24 20:25 Respiratory Rate 18 BMI result Body Mass Index 26.8 Medications Medications Current Medications Acetaminophen (Acetaminophen 325 Mg Tablet) 650 mg PO Q6H PRN PRN Reason: Headache/Pain Mild Scale (1-3) Al Hydroxide/Mg Hydroxide (Magnesium Hydrox/Alum Hydrox 30 Ml Oral.Susp) 30 ml PO Q6H PRN PRN Reason: Heartburn/Nausea Hydroxyzine HCl (Hydroxyzine Hcl 25 Mg Tablet) 25 mg PO Q6H PRN PRN Reason: Anxiety Magnesium Hydroxide (Milk Of Magnesia 30 Ml Oral.Susp) 30 ml PO DAILY PRN PRN Reason: Constipation Nicotine (Nicotine 21 Mg Patch.Td24) 21 mg TRANSDERMA DAILY PRN PRN Reason: smoking cessation Nicotine Polacrilex (Nicotine Polacrilex 2 Mg Gum) 4 mg BUCCAL Q2H PRN PRN Reason: nicotine cravings Olanzapine (Olanzapine 2.5 Mg Tablet) 2.5 mg PO TID PRN PRN Reason: agitation Olanzapine (Olanzapine 2.5 Mg Tablet) 2.5 mg PO BEDTIME JUDY Last Admin: 07/10/24 23:40 Dose: Not Given Trazodone HCl (Trazodone Hcl 50 Mg Tablet) 50 mg PO BEDTIME MRX1 PRN PRN Reason: Insomnia Allergies Allergies Allergy/AdvReac Type Severity Reaction Status Date / Time No Known Allergies Allergy Verified 11/09/20 16:49 Assessment & Plan Assessment & Plan (1) PTSD (post-traumatic stress disorder): Status: Acute Code(s): F43.10 - Post-traumatic stress disorder, unspecified (2) TBI (traumatic brain injury): Status: Acute Code(s): S06.9XAA - Unspecified intracranial injury with loss of consciousness status unknown, initial encounter (3) Schizo affective schizophrenia: Status: Acute Code(s): F25.9 - Schizoaffective disorder, unspecified Plan Patient is a 39-year-old female with history of MDD with psychosis, and TBI, who was brought to ED via EMS after patient reportedly called 911 multiple times and made suicidal statements. Plan: 3 day 15 minute safety checks Obtain collateral Start: Zyprexa 5mg PO bedtime Ativan 0.5mg PO bedtime Encourage groups Referral to outpatient psychiatric providers Discharge planning 07/08: disorganized, clearly unable to meet basic needs for herself. continue to offer medications. file for commitment tomorrow. attempted to elope from fresh air break, required physical hold to return to unit. 07/09: filed for commitment. invoking HCP. mother (HCP) approved zyprexa 2.5 mg QHS. 07/10: refused meds last night. bizarre and disorganized behaviors continue. continue current mgmt. 07/11: refused meds last night. no change in presentation aside from being able to communicate that she wants to go home. continue current mgmt. Reason for continued inpatient stay Substantial Risk for: inability to function Time Spent With Patient Time: Total time managing care of this patient today _25___ minutes.
[2024-07-11 21:03] VITALS: RESP 18
--- NOTE | 2024-07-12 14:51 | P.PNPSI_ITS ---
Subjective Subjective Date of Service: 07/12/24 Reason For Visit: Unspecified Depressive Disorder Interim History: no change in presentation. disorganized, the only meaningful communication was that she wants to go home. standing in acevedo most of the day. per staff, dep 7, anxious. spent hours standing alone in acevedo, mumbling. no sleep overnight. drank 16 oz water overnight. Mental Status Exam Mental Status Exam Narrative: disheveled, cooperative to her ability. general PMR. speech nml rate, decr amount, incr latency, decr loudness. thoughts disorganized, vague. affect rusty nted. mood not assessed. no SI/HI/AVH expressed. Diagnostics Vital Signs (24Hr): Vital Signs - 24 hr 07/11/24 21:03 Respiratory Rate 18 BMI result Body Mass Index 26.8 Medications Medications Current Medications Acetaminophen (Acetaminophen 325 Mg Tablet) 650 mg PO Q6H PRN PRN Reason: Headache/Pain Mild Scale (1-3) Al Hydroxide/Mg Hydroxide (Magnesium Hydrox/Alum Hydrox 30 Ml Oral.Susp) 30 ml PO Q6H PRN PRN Reason: Heartburn/Nausea Hydroxyzine HCl (Hydroxyzine Hcl 25 Mg Tablet) 25 mg PO Q6H PRN PRN Reason: Anxiety Magnesium Hydroxide (Milk Of Magnesia 30 Ml Oral.Susp) 30 ml PO DAILY PRN PRN Reason: Constipation Nicotine (Nicotine 21 Mg Patch.Td24) 21 mg TRANSDERMA DAILY PRN PRN Reason: smoking cessation Nicotine Polacrilex (Nicotine Polacrilex 2 Mg Gum) 4 mg BUCCAL Q2H PRN PRN Reason: nicotine cravings Olanzapine (Olanzapine 2.5 Mg Tablet) 2.5 mg PO TID PRN PRN Reason: agitation Olanzapine (Olanzapine 2.5 Mg Tablet) 2.5 mg PO BEDTIME JUDY Last Admin: 07/11/24 22:44 Dose: Not Given Trazodone HCl (Trazodone Hcl 50 Mg Tablet) 50 mg PO BEDTIME MRX1 PRN PRN Reason: Insomnia Allergies Allergies Allergy/AdvReac Type Severity Reaction Status Date / Time No Known Allergies Allergy Verified 11/09/20 16:49 Assessment & Plan Assessment & Plan (1) PTSD (post-traumatic stress disorder): Status: Acute Code(s): F43.10 - Post-traumatic stress disorder, unspecified (2) TBI (traumatic brain injury): Status: Acute Code(s): S06.9XAA - Unspecified intracranial injury with loss of consciousness status unknown, initial encounter (3) Schizo affective schizophrenia: Status: Acute Code(s): F25.9 - Schizoaffective disorder, unspecified Plan Patient is a 39-year-old female with history of MDD with psychosis, and TBI, who was brought to ED via EMS after patient reportedly called 911 multiple times and made suicidal statements. Plan: 3 day 15 minute safety checks Obtain collateral Start: Zyprexa 5mg PO bedtime Ativan 0.5mg PO bedtime Encourage groups Referral to outpatient psychiatric providers Discharge planning 07/08: disorganized, clearly unable to meet basic needs for herself. continue to offer medications. file for commitment tomorrow. attempted to elope from fresh air break, required physical hold to return to unit. 07/09: filed for commitment. invoking HCP. mother (HCP) approved zyprexa 2.5 mg QHS. 07/10: refused meds last night. bizarre and disorganized behaviors continue. continue current mgmt. 07/11: refused meds last night. no change in presentation aside from being able to communicate that she wants to go home. continue current mgmt. 07/12: MD encouraged pt to take medications. she has been refusing thus far. no change in presentation. no sleep overnight, hours standing in the acevedo, had 16 oz water last night. Reason for continued inpatient stay Substantial Risk for: inability to function Time Spent With Patient Time: Total time managing care of this patient today __25__ minutes.
[2024-07-12 20:00] VITALS: RESP 20
[2024-07-12 20:15] VITALS: RESP 20
--- NOTE | 2024-07-12 20:15 | HO.EVEPSY_ITS ---
Event Note Date of Service: 07/12/24 Psych Restraint Event Note: nursing staff contacted automotive service writer informing that patient needed a hold restraint as pt was disorganized to understand verbal direction, urinating on herself and too disorganized to move out of it, needing redirection hold. Time Spent With Patient Time: Total time managing care of this patient today ____ minutes.
[2024-07-12 20:30] VITALS: RESP 18
[2024-07-12 20:45] VITALS: RESP 18
--- NOTE | 2024-07-12 21:00 | PM.EVENT ---
Event Note Date of Service: 07/12/24 Event Note: 8:00 PM - Contacted by nursing to notify patient has been restless and had to be physical held in order to care for her. Nursing also noted pt has left leg edema. Patient seems confused and uncooperative. I was able to examine her left leg briefly (barely allowed me to check her leg). Left leg seems quite edematous. We will obtain a LLE venous ultrasound to assess for DVT. Time Spent With Patient Time: Total time managing care of this patient today ____ minutes.
--- NOTE | 2024-07-12 23:04 | PC.NURSE ---
restraint hold at 1940-called to assist a second female RN as patient had urinated on self, was standing in urine and unable to follow verbal prompts for self care and hygiene. patient was given directive to change, given time to process information but unable to move forward for care. a hold of arms/hands was required to change patient out of wet pants and uwear. attempts were made to give/offer shower but patient unable to follow prompts, shower unable to be given. did participate to the best of her ability to clean up self when given hospital care wipes after pants/uwear were removed but did require the second RN to follow up with a warm cloth to her lower extremities, not being able to clean self in a manner in which an incontinent patient requires, changing over of clothing was a difficult process for patient. privacy was provided as care was in the shower room area. lower end of back of shirt was possibly wet from urine, patient refused/not participating in changing and it was determined that patient needed some time for tension reduction from changing over pants so that shirt was left in place. patient refused all VS. respirations monitored. drank 1 cup of gingerale. patient was seen by the hospitalist at 1999. RN also had hospitalist evaluate patients feet/legs as patient has not been sleeping, sits infrequently and swelling is noted. patient did not want mother called. patient has not changed her shirt and has been standing in the hallway. there is a chair for patient next to where she is standing but has not taken a seat.
--- NOTE | 2024-07-13 00:45 | PC.NURSE ---
Mom, Ana called. identified self as HCP and verified. incident of hold reviewed. allowed time to process including being given more education about the section 7 process. reports having scheduled visit with daughter tomorrow.
--- NOTE | 2024-07-13 08:14 | PC.NURSE ---
This proposal lead writer approached pt, to inquire about her having ultrasound to left leg. Pt declined. This proposal lead writer fanta texted Ankita Ma in department, to let her know that pt had declined.
--- NOTE | 2024-07-13 08:21 | PC.NURSE ---
This abstract writer texted Dr Luna & Mitali Pennington NP, to request an Ensure order with each meal. Pt.'s mother stated that if you put fluids in her hand/next to her, she will consume, however, she is refusing food at this time. Answer pending.
--- NOTE | 2024-07-13 11:23 | HO.PSYCHPN ---
Subjective Subjective Date of Service: 07/13/24 Reason For Visit: Unspecified Depressive Disorder Interim History: Met with patient; discussed with team Patient remains floridly disorganized, standing in 1 [address], not talking, not eating, urinating on herself... Can not respond to questions and barely responds to nursing directions. Mental Status Exam Mental Status Exam Narrative: Awake and alert but Not sure if oriented; disheveled; unable to engage or cooperate; not speaking and only making small grunting noises, not eating; thought process: Mostly just making noises, as if she is trying to start a sentence but can not get the words out; thought content: Disorganized. Affect blunted; mood unable to be assessed. no SI/HI/AVH expressed. Diagnostics Vital Signs (24Hr): Vital Signs - 24 hr 07/12/24 20:00 07/12/24 20:15 07/12/24 20:30 Respiratory Rate 20 20 18 07/12/24 20:45 Respiratory Rate 18 BMI result Body Mass Index 26.8 Medications Medications Current Medications Acetaminophen (Acetaminophen 325 Mg Tablet) 650 mg PO Q6H PRN PRN Reason: Headache/Pain Mild Scale (1-3) Al Hydroxide/Mg Hydroxide (Magnesium Hydrox/Alum Hydrox 30 Ml Oral.Susp) 30 ml PO Q6H PRN PRN Reason: Heartburn/Nausea Hydroxyzine HCl (Hydroxyzine Hcl 25 Mg Tablet) 25 mg PO Q6H PRN PRN Reason: Anxiety Magnesium Hydroxide (Milk Of Magnesia 30 Ml Oral.Susp) 30 ml PO DAILY PRN PRN Reason: Constipation Nicotine (Nicotine 21 Mg Patch.Td24) 21 mg TRANSDERMA DAILY PRN PRN Reason: smoking cessation Nicotine Polacrilex (Nicotine Polacrilex 2 Mg Gum) 4 mg BUCCAL Q2H PRN PRN Reason: nicotine cravings Olanzapine (Olanzapine 2.5 Mg Tablet) 2.5 mg PO TID PRN PRN Reason: agitation Olanzapine (Olanzapine 2.5 Mg Tablet) 2.5 mg PO BEDTIME JUDY Last Admin: 07/12/24 21:44 Dose: Not Given Trazodone HCl (Trazodone Hcl 50 Mg Tablet) 50 mg PO BEDTIME MRX1 PRN PRN Reason: Insomnia Allergies Allergies Allergy/AdvReac Type Severity Reaction Status Date / Time No Known Allergies Allergy Verified 11/09/20 16:49 Assessment & Plan Assessment & Plan (1) Schizo affective schizophrenia: Status: Acute Code(s): F25.9 - Schizoaffective disorder, unspecified (2) PTSD (post-traumatic stress disorder): Status: Acute Code(s): F43.10 - Post-traumatic stress disorder, unspecified (3) TBI (traumatic brain injury): Status: Acute Code(s): S06.9XAA - Unspecified intracranial injury with loss of consciousness status unknown, initial encounter (4) 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 Plan: 3 day 15 minute safety checks Obtain collateral Start: Zyprexa 5mg PO bedtime Ativan 0.5mg PO bedtime Encourage groups Referral to outpatient psychiatric providers Discharge planning 07/08: disorganized, clearly unable to meet basic needs for herself. continue to offer medications. file for commitment tomorrow. attempted to elope from fresh air break, required physical hold to return to unit. 07/09: filed for commitment. invoking HCP. mother (HCP) approved zyprexa 2.5 mg QHS. 07/10: refused meds last night. bizarre and disorganized behaviors continue. continue current mgmt. 07/11: refused meds last night. no change in presentation aside from being able to communicate that she wants to go home. continue current mgmt. 07/12: MD encouraged pt to take medications. she has been refusing thus far. no change in presentation. no sleep overnight, hours standing in the acevedo, had 16 oz water last night. 07/13 Patient remains floridly disorganized, standing in [address], not talking, not eating, urinating on herself... Can not respond to questions and barely responds to nursing directions. -last night patient standing in the milieu in her own urine soaked clothing, unable to respond -not sure how much symptoms are related to TBI -patient appears catatonic. -Will start Ativan 1 mg t.i.d. though it seems she remains unwilling or unable to agree to take it Informed Consent: does not understand Reason for continued inpatient stay Substantial Risk for: inability to function Time Spent With Patient Time: Total time managing care of this patient today ____ minutes.
[2024-07-13 20:00] VITALS: RESP 16
--- NOTE | 2024-07-14 16:35 | HO.PSYCHPN ---
Subjective Subjective Date of Service: 07/14/24 Reason For Visit: Unspecified Depressive Disorder Interim History: Met with patient; discussed with team Patient remains completely disorganized. Patient standing up all day, in 1 place and not moving. Not eating at all and drinking very little. She is not talking much at all other than very quiet mumbles. Her mother was present who try to get her to take Ativan but patient refused. Cutting And Splicing Supervisor could barely hear her low volume mumble but she said... Leave me alone...I am talking [to her mother]. Mental Status Exam Mental Status Exam Narrative: Awake and alert but Not sure if oriented; disheveled; unable to engage or cooperate; not speaking and only making small grunting noises, not eating; thought process: Mostly just making noises, as if she is trying to start a sentence but can not get the words out; thought content: Disorganized. Affect blunted; mood unable to be assessed. no SI/HI/AVH expressed. Diagnostics Vital Signs (24Hr): Vital Signs - 24 hr 07/13/24 20:00 Respiratory Rate 16 BMI result Body Mass Index 26.8 Medications Medications Current Medications Acetaminophen (Acetaminophen 325 Mg Tablet) 650 mg PO Q6H PRN PRN Reason: Headache/Pain Mild Scale (1-3) Al Hydroxide/Mg Hydroxide (Magnesium Hydrox/Alum Hydrox 30 Ml Oral.Susp) 30 ml PO Q6H PRN PRN Reason: Heartburn/Nausea Hydroxyzine HCl (Hydroxyzine Hcl 25 Mg Tablet) 25 mg PO Q6H PRN PRN Reason: Anxiety Lorazepam (Lorazepam 1 Mg Tablet) 1 mg PO TID [facility] Last Admin: 07/14/24 08:55 Dose: Not Given Magnesium Hydroxide (Milk Of Magnesia 30 Ml Oral.Susp) 30 ml PO DAILY PRN PRN Reason: Constipation Nicotine (Nicotine 21 Mg Patch.Td24) 21 mg TRANSDERMA DAILY PRN PRN Reason: smoking cessation Nicotine Polacrilex (Nicotine Polacrilex 2 Mg Gum) 4 mg BUCCAL Q2H PRN PRN Reason: nicotine cravings Olanzapine (Olanzapine 2.5 Mg Tablet) 2.5 mg PO TID PRN PRN Reason: agitation Olanzapine (Olanzapine 2.5 Mg Tablet) 2.5 mg PO BEDTIME [facility] Last Admin: 07/13/24 21:54 Dose: Not Given Trazodone HCl (Trazodone Hcl 50 Mg Tablet) 50 mg PO BEDTIME MRX1 PRN PRN Reason: Insomnia Allergies Allergies Allergy/AdvReac Type Severity Reaction Status Date / Time No Known Allergies Allergy Verified 11/09/20 16:49 Assessment & Plan Assessment & Plan (1) Schizo affective schizophrenia: Status: Acute Code(s): F25.9 - Schizoaffective disorder, unspecified (2) PTSD (post-traumatic stress disorder): Status: Acute Code(s): F43.10 - Post-traumatic stress disorder, unspecified (3) TBI (traumatic brain injury): Status: Acute Code(s): S06.9XAA - Unspecified intracranial injury with loss of consciousness status unknown, initial encounter (4) Catatonia: Status: Suspected Code(s): F06.1 - Catatonic disorder due to known physiological condition Assessment and Plan: r/o catatonia Plan Patient is a 39-year-old female with history of MDD with psychosis, and TBI, who was brought to ED via EMS after patient reportedly called 911 multiple times and made suicidal statements. Plan: 3 day 15 minute safety checks Obtain collateral Start: Zyprexa 5mg PO bedtime Ativan 0.5mg PO bedtime Encourage groups Referral to outpatient psychiatric providers Discharge planning 07/08: disorganized, clearly unable to meet basic needs for herself. continue to offer medications. file for commitment tomorrow. attempted to elope from fresh air break, required physical hold to return to unit. 07/09: filed for commitment. invoking HCP. mother (HCP) approved zyprexa 2.5 mg QHS. 07/10: refused meds last night. bizarre and disorganized behaviors continue. continue current mgmt. 07/11: refused meds last night. no change in presentation aside from being able to communicate that she wants to go home. continue current mgmt. 07/12: MD encouraged pt to take medications. she has been refusing thus far. no change in presentation. no sleep overnight, hours standing in the acevedo, had 16 oz water last night. 07/13 Patient remains floridly disorganized, standing in 1 place, not talking, not eating, urinating on herself... Can not respond to questions and barely responds to nursing directions. -last night patient standing in the milieu in her own urine soaked clothing, unable to respond -not sure how much symptoms are related to TBI -patient appears catatonic. -Will start Ativan 1 mg t.i.d. though it seems she remains unwilling or unable to agree to take it 07/14 Patient remains completely disorganized. Patient standing up all day, in 1 place and not moving. Not eating at all and drinking very little. She is not talking much at all other than very quiet mumbles. Her mother was present who try to get her to take Ativan but patient refused. Cutting And Splicing Supervisor could barely hear her low volume mumble but she said... Leave me alone...I am talking [to her mother]. Patient educated on: diagnosis and medication risk/benefits Informed Consent: does not understand Reason for continued inpatient stay Substantial Risk for: inability to function Time Spent With Patient Time: Total time managing care of this patient today ____ minutes.
[2024-07-14 19:53] VITALS: RESP 18
--- NOTE | 2024-07-15 13:22 | HO.PSYCHPN ---
Subjective Subjective Date of Service: 07/15/24 Reason For Visit: Unspecified Depressive Disorder Interim History: sitting in chair in aceved[place], falling asleep. unable to remain awake for conversation. no complaints or requests. per staff, +RIS. paranoid. in aceved[place]. won't go in her room. incontinent of urine x 2. spoke with her mother. no sleep overnight. not taking meals. taking some water over the weekend. court tomorrow. leg edema, likely from prolonged standing; refused doppler U/S. Mental Status Exam Mental Status Exam Narrative: Awake and alert but Not sure if oriented; disheveled; unable to engage or cooperate; not speaking and shaking head some only, not eating; thought process: some head shaking in response to question; thought content: largely unknown. Affect blunted; mood unable to be assessed. no SI/HI/AVH expressed. Diagnostics Vital Signs (24Hr): Vital Signs - 24 hr 07/14/24 19:53 Respiratory Rate 18 BMI result Body Mass Index 26.8 Medications Medications Current Medications Acetaminophen (Acetaminophen 325 Mg Tablet) 650 mg PO Q6H PRN PRN Reason: Headache/Pain Mild Scale (1-3) Al Hydroxide/Mg Hydroxide (Magnesium Hydrox/Alum Hydrox 30 Ml Oral.Susp) 30 ml PO Q6H PRN PRN Reason: Heartburn/Nausea Hydroxyzine HCl (Hydroxyzine Hcl 25 Mg Tablet) 25 mg PO Q6H PRN PRN Reason: Anxiety Lorazepam (Lorazepam 1 Mg Tablet) 1 mg PO TID [facility] Last Admin: 07/15/24 09:40 Dose: Not Given Magnesium Hydroxide (Milk Of Magnesia 30 Ml Oral.Susp) 30 ml PO DAILY PRN PRN Reason: Constipation Nicotine (Nicotine 21 Mg Patch.Td24) 21 mg TRANSDERMA DAILY PRN PRN Reason: smoking cessation Nicotine Polacrilex (Nicotine Polacrilex 2 Mg Gum) 4 mg BUCCAL Q2H PRN PRN Reason: nicotine cravings Olanzapine (Olanzapine 2.5 Mg Tablet) 2.5 mg PO TID PRN PRN Reason: agitation Olanzapine (Olanzapine 2.5 Mg Tablet) 2.5 mg PO BEDTIME [facility] Last Admin: 07/14/24 22:54 Dose: Not Given Trazodone HCl (Trazodone Hcl 50 Mg Tablet) 50 mg PO BEDTIME MRX1 PRN PRN Reason: Insomnia Allergies Allergies Allergy/AdvReac Type Severity Reaction Status Date / Time No Known Allergies Allergy Verified 11/09/20 16:49 Assessment & Plan Assessment & Plan (1) Schizo affective schizophrenia: Status: Acute Code(s): F25.9 - Schizoaffective disorder, unspecified (2) PTSD (post-traumatic stress disorder): Status: Acute Code(s): F43.10 - Post-traumatic stress disorder, unspecified (3) TBI (traumatic brain injury): Status: Acute Code(s): S06.9XAA - Unspecified intracranial injury with loss of consciousness status unknown, initial encounter (4) Catatonia: Status: Suspected Code(s): F06.1 - Catatonic disorder due to known physiological condition Assessment and Plan: r/o catatonia Plan Patient is a 39-year-old female with history of MDD with psychosis, and TBI, who was brought to ED via EMS after patient reportedly called 911 multiple times and made suicidal statements. Plan: 3 day 15 minute safety checks Obtain collateral Start: Zyprexa 5mg PO bedtime Ativan 0.5mg PO bedtime Encourage groups Referral to outpatient psychiatric providers Discharge planning 07/08: disorganized, clearly unable to meet basic needs for herself. continue to offer medications. file for commitment tomorrow. attempted to elope from fresh air break, required physical hold to return to unit. 07/09: filed for commitment. invoking HCP. mother (HCP) approved zyprexa 2.5 mg QHS. 07/10: refused meds last night. bizarre and disorganized behaviors continue. continue current mgmt. 07/11: refused meds last night. no change in presentation aside from being able to communicate that she wants to go home. continue current mgmt. 07/12: encouraged pt to take medications. she has been refusing thus far. no change in presentation. no sleep overnight, hours standing in the acevedo, had 16 oz water last night. 07/13: Patient remains floridly disorganized, standing in 1 place, not talking, not eating, urinating on herself... Can not respond to questions and barely responds to nursing directions. -last night patient standing in the milieu in her own urine soaked clothing, unable to respond -not sure how much symptoms are related to TBI -patient appears catatonic. -Will start Ativan 1 mg t.i.d. though it seems she remains unwilling or unable to agree to take it 07/14: Patient remains completely disorganized. Patient standing up all day, in 1 place and not moving. Not eating at all and drinking very little. She is not talking much at all other than very quiet mumbles. Her mother was present who try to get her to take Ativan but patient refused. Mechanical Press Operator could barely hear her low volume mumble but she said... Leave me alone...I am talking [to her mother]. 07/15: sitting in chair in the acevedo. refusing to go to her room, standing for prolonged periods of time. LE edema, refused U/S. unable to remain awake for interview. shook head no on being asked if there were anything MD could do for her. per legal secretary receptionist, will not be able to proceed with 8b due to HCP. HCP is not cooperative with treatment and wants pt to be home. currently planning, in that case, to withdrawn petitions and discharge pt to care of her mother, as even if she is committed, we will not be able to medicate her against her mother's wishes. Reason for continued inpatient stay Substantial Risk for: inability to function Time Spent With Patient Time: Total time managing care of this patient today __45__ minutes.
[2024-07-15 20:26] VITALS: RESP 16
[2024-07-16 08:00] VITALS: RESP 18
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
== END 2024-07-16 13:23 | disposition home or self-care (01) | DRG 750 ==
LOC: HO.PM5 07-05 12:02 → HO.PADLT16 07-07 12:30
PROVIDERS: Admitting Provider Psychiatry & Neurology Psychiatry; Responsible Provider Psychiatry & Neurology Psychiatry; Visit Provider Psychiatry & Neurology Psychiatry
DX: F25.9 Schizoaffective disorder, unspecified (principal); R45.851 Suicidal ideations; F32.9 Major depressive disorder, single episode, unspecified; Z78.1 Physical restraint status; F43.10 Post-traumatic stress disorder, unspecified; Z87.820 Personal history of traumatic brain injury; Z79.899 Other long term (current) drug therapy

== ENCOUNTER → 2024-07-04 13:54 | Outpatient (BNV) | payer OTHER, SELFPAY | PROVIDERS: Admitting Provider Psychiatry & Neurology Psychiatry; Visit Provider Physician Assistant | DX: Z00.8 Encounter for other general examination (principal) | CPT/HCPCS: 99429; 99499 ==

== ENCOUNTER → 2024-07-04 13:54 | Outpatient (BNV) | payer OTHER, SELFPAY | PROVIDERS: Admitting Provider Psychiatry & Neurology Psychiatry; Visit Provider Registered Nurse | DX: F25.1 Schizoaffective disorder, depressive type (principal); F43.11 Post-traumatic stress disorder, acute; S06.9XAD Unspecified intracranial injury with loss of consciousness status unknown, subsequent encounter | CPT/HCPCS: 90792; 99232; 99499 ==